=== PATIENT | female | born 1985 | race Caucasian/White ===

== ENCOUNTER 2020-01-07 16:12 | Emergency (ER) | payer OTHER ==
[~2020-01-07] VITALS: Ht 170.2 cm; Wt 87.7 kg
[2020-01-07] MEDS ORDERED: IBUPROFEN 200 MG TABLET. PO ONE (16:30)
--- NOTE | 2020-01-07 16:34 | PHYS DOC ---
Adult General Chief Complaint Chief Complaint: BACK PAIN OR INJURY HPI HPI Patient is a 34 year old female who presents with Since yesterday bilateral low back pain, chills, and headache. Patient states she's been taking Tylenol and ibuprofen for pain. She denies abdominal pain, dizziness, visual changes, nausea, vomiting, diarrhea, cough, nasal congestion, throat pain, ear pain or dysuria. Patient's temperature in emergency room is 99.9. Review of Systems Review of Systems Constitutional: fever or chills [] Respiratory: Denies cough or shortness of breath [] Musculoskeletal: Bilateral low back pain or joint pain [] Neurologic: Generalized headache, denies focal weakness or sensory changes [] All other systems were reviewed and found to be within normal limits, except as documented in this note. Current Medications Current Medications Current Medications Medications (Trade) Dose Ordered Sig/Parisa Start Time Stop Time Status Last Admin Dose Admin Ibuprofen (Motrin) 600 mg 1X ONCE 01/07/20 16:30 01/07/20 16:42 DC 01/07/20 16:55 600 MG Allergies Allergies Allergies Coded Allergies Type Severity Reaction Last Updated Verified No Known Drug Allergies 01/07/20 No Physical Exam Physical Exam Constitutional: Well developed, well nourished, no acute distress, non-toxic appearance. [] HENT: Normocephalic, atraumatic, bilateral external ears normal, oropharynx m oist, no oral exudates, nose normal. [] Eyes: PERRLA, EOMI, conjunctiva normal, no discharge. [] Neck: Normal range of motion, no tenderness, supple, no stridor. [] Cardiovascular:Heart rate regular rhythm, no murmur [] Lungs & Thorax: Bilateral breath sounds clear to auscultation [] Abdomen: Bowel sounds normal, soft, no tenderness, no masses, no pulsatile masses. [] Skin: Warm, dry, no erythema, no rash. [] Back: No tenderness, no CVA tenderness. [] Extremities: No tenderness, no cyanosis, no clubbing, ROM intact, no edema. [] Neurologic: Alert and oriented X 3, normal motor function, normal sensory function, no focal deficits noted. [] Psychologic: Affect normal, judgement normal, mood normal. Normal Physical Exam [] Current Patient Data Vital Signs Vital Signs Date Time Temp Pulse Resp B/P (MAP) Pulse Ox O2 Delivery O2 Flow Rate FiO2 01/07/20 16:47 99.9 93 18 108/71 (83) 98 Room Air 99.9 Lab Values Laboratory Tests Test 01/07/20 16:23 01/07/20 16:36 Urine Collection Type Unknown Urine Color Yellow Urine Clarity Cloudy Urine pH 5.5 Urine Specific [place] 1.025 Urine Protein Negative mg/dL (NEG-TRACE) Urine Glucose (UA) Negative mg/dL (NEG) Urine Ketones (Stick) 40 mg/dL (NEG) Urine Blood Small (NEG) Urine Nitrite Negative (NEG) Urine Bilirubin Negative (NEG) Urine Urobilinogen Dipstick 0.2 mg/dL (0.2 mg/dL) Urine Leukocyte Esterase Negative (NEG) Urine RBC 6-10 /HPF (0-2) Urine WBC 1-4 /HPF (0-4) Urine Squamous Epithelial Cells Few /LPF Urine Bacteria Few /HPF (0-FEW) Urine Mucus Marked /LPF POC Urine HCG, Qualitative Hcg negative (Negative) EKG EKG [] Radiology/Procedures Radiology/Procedures [] Course & Med Decision Making Course & Med Decision Making Pertinent Labs and Imaging studies reviewed. (See chart for details) Alert and oriented. Speaks in full clear sentences. Ambulatory to steady gait. Skin pink warm and dry. Lungs are clear to auscultation all lobes. Abdomen soft and nontender. No CVA tenderness. Bilateral tympanic pink. Throat is pink without swelling or exudates. Patient works at [employer] [place] and states others around her have been coming back positive for influenza. Currently is on her period of which she started today. Influenza A positive. [] Mark Disclaimer Mark Disclaimer This electronic medical record was generated, in whole or in part, using a voice recognition dictation system. Departure Departure Impression: Primary Impression: Influenza A Disposition: 01 HOME, SELF-CARE Condition: STABLE Patient Instructions: Influenza, Adult Additional Instructions: Follow up with primary care provider. Take tylenol of ibupforen to control fever and pain. Take medication with food. Drink plenty of fluids. Scripts Oseltamivir Phosphate (TAMIFLU) 75 Mg Capsule 1 CAP PO BID, #10 CAP Prov: SANDI MAJOR [employer]IDENTIAL [employer]ASING MANAGER 01/07/20 Ondansetron (ONDANSETRON ODT) 4 Mg Tab.rapdis 1 TAB PO PRN Q6-8HRS, #20 TAB Prov: SANDI MAJOR APRN 01/07/20 SANDI MAJOR APRN Jan 07, 2020 16:34
[2020-01-07 16:47] VITALS: BP 108/71
[2020-01-07 16:51] LABS: BILIRUBIN,URINE NEGATIVE (NEG); CLARITY,URINE CLOUDY; COLOR,URINE YELLOW; NITRITE,URINE NEGATIVE (NEG); PH,URINE 5.5; PROTEIN,URINE NEGATIVE (NEG-TRACE); UROBILINOGEN,URINE 0.2 mg/dL (0.2 mg/dL)
[2020-01-07 16:57] LABS: BACTERIA,URINE FEW /HPF (0-FEW); SQUAMOUS EPITHELIAL CELL,UR FEW /LPF
[2020-01-07 17:24] LABS: INFLUENZA A PATIENT POSITIVE (NEGATIVE); INFLUENZA B PATIENT NEGATIVE (NEGATIVE)
[2020-01-07] MEDS ORDERED: ONDA4TAB12 PO (17:27)
[2020-01-07] MEDS ORDERED: OSEL75CA PO (17:27)
== END 2020-01-07 17:34 | disposition home or self-care (01) ==
LOC: ER 16:12
DX: J10.1 Influenza due to other identified influenza virus with other respiratory manifestations (principal); M54.5 Low back pain; R50.9 Fever, unspecified; R51 Headache
CPT/HCPCS: 81001; 81025; 87804; 99283